=== PATIENT | female | born 1990 ===

== ENCOUNTER 2018-02-15 16:34 | Emergency (ER) | payer OTHER ==
[2018-02-15 16:52] VITALS: BP 119/57; PULSE 74; RESP 18; TEMP 97; O2SAT 99
[2018-02-15] MEDS ORDERED: ACETAMINOPHEN 325 MG PO ONE (16:55)
[2018-02-15] MEDS ORDERED: LIDOCAINE HCL 2% GEL TOP ONE ×2 (16:56→16:57)
[2018-02-15] MEDS ORDERED: LIDOCAINE HCL 1% MDV 50 ML SOL SC ONE (16:57)
[2018-02-15] MEDS ORDERED: LIDOCAINE HCL 2% MPF 10 ML SOL ONE (17:05)
[2018-02-15] MEDS ORDERED: ACETAMINOPHEN 500 MG 500 MG TAB ONE (17:05)
[2018-02-15] MEDS ORDERED: BACITRACIN 500 U/GM OIN TOP ONE ×2 (17:35→17:36)
== END 2018-02-15 17:40 | disposition home or self-care (01) | DRG 605 ==
LOC: ED 16:34
DX: S61.211A Laceration without foreign body of left index finger without damage to nail, initial encounter (principal)
CPT/HCPCS: 12001; 73130; 99284; A6402; A9270-GY

== ENCOUNTER 2018-12-03 13:00 | Emergency (ER) | payer BC, OTHER ==
[2018-12-03 13:06] VITALS: BP 124/87; PULSE 131; RESP 16; O2SAT 100
[2018-12-03 13:16] VITALS: TEMP 97
[2018-12-03] MEDS ORDERED: LIDOCAINE HCL 2% MPF 10 ML SOL SC ONE (13:24)
[2018-12-03] MEDS ORDERED: LIDOCAINE HCL 2% MPF 10 ML SOL ONE (13:25)
== END 2018-12-03 14:28 | disposition home or self-care (01) ==
LOC: ED 13:00
DX: L03.011 Cellulitis of right finger (principal)
CPT/HCPCS: 10060; 87070; 87205; 99282; A6402